=== PATIENT | male | born 1955 | race Caucasian/White ===

== ENCOUNTER 2022-03-10 05:38 | Outpatient (CLI) | payer BC ==
[~2022-03-10] VITALS: Ht 170.2 cm; Wt 81.6 kg
== END 2022-03-10 11:00 | disposition home or self-care (01) ==
LOC: PREOP 05:38
PROVIDERS: ATTEND Internal Medicine
DX: Z01.818 Encounter for other preprocedural examination (principal)

== ENCOUNTER 2022-03-18 08:27 | Day surgery (SDC) | payer BC ==
--- NOTE | 2022-03-10 08:10 | HISTORY AND PHYSICAL ---
DATE OF SERVICE: COLONOSCOPY HISTORY AND PHYSICAL DATE OF ADMISSION: 03/18/2022 HISTORY OF PRESENT ILLNESS: The patient is a 66-year-old white male referred by Dr. Anderson for screening colonoscopy. He reports one other colonoscopy 15 years ago, but as he recalls revealed no abnormalities. No evidence for neoplasia. He does have one second-degree relative with colon cancer and a great uncle with colon cancer on his father's side, they both had it later in life 70s or 80s. He is aware of no other history of GI tract malignancy. He denies melena or bright red blood per rectum, change in bowel habits or abdominal pain. PAST MEDICAL HISTORY: Significant for coronary artery disease and hyperlipidemia. He underwent bypass surgery in 1997 at the age of 42. He then had one stent placed in 2013. Since that time, he has had no further cardiac difficulty on statin and PCSK-9 inhibitor therapy. He reports total cholesterol of under 100 with an LDL in the 30s and the HDL in the 40s. PAST SURGICAL HISTORY: Other than bypass, significant for tonsillectomy and adenoidectomy as a child. 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 No past smoking history. Occasional glass of wine. No past history of heavy drinking. FAMILY HISTORY: Other than stated above, father at the age of 31 of an [place]. Mother is living at the age of 94 with no vascular disease or cancer. REVIEW OF SYSTEMS: CONSTITUTIONAL: Denies night sweats, chills, fever or change in weight. GASTROINTESTINAL: As noted in the HPI. PULMONARY: Denies cough, wheezing or shortness of breath. CARDIOVASCULAR: Denies chest discomfort, orthopnea, PND, pedal edema or syncope. PHYSICAL EXAMINATION: GENERAL: Reveals a white male, who appeared to be in no acute distress. VITAL SIGNS: Weight 180.6 pounds and blood pressure 124/72. HEENT: Unremarkable. CHEST: Clear to auscultation. CARDIAC: Reveals a regular rate and rhythm. Soft 1 to 2/6 systolic ejection murmur heard best at right intercostal space without evidence for pulsus, parvus or tardus. No S3 or S4 noted. ABDOMEN: Soft, supple without mass, organomegaly or tenderness. RECTAL: Deferred at the time of colonoscopy. EXTREMITIES: Reveal no cyanosis, clubbing or edema. SKIN: Evaluation revealed no suspicious nevi, a few benign nondysplastic appearing on the back and trunk. ASSESSMENT AND PLAN: The patient is being set up for screening colonoscopy. Prep instructions with the Plenvu prep were given and questions were answered. Job ID: [id number] DocumentID: [id number] Dictated Date: 03/09/2022 15:06:35 Supervisor [employer] Date: 03/09/2022 15:25:47 Dictated By: GURJIT GARCIA MD
[~2022-03-18] VITALS: Ht 170.2 cm; Wt 81.6 kg
[2022-03-18] MEDS ORDERED: LACTATED RINGERS 1,000 ML IV STA (08:36)
--- NOTE | 2022-03-18 08:37 | Pre-Op Note & Conscious Sedat ---
Pre-Operative Progress Note H&P Reviewed The H&P was reviewed, patient examined and no changes noted. Date H&P Reviewed: Mar 18, 2022 Time H&P Reviewed: 08:37 Conscious Sedation Pre-Proced ASA Score 2 For ASA 3 and 4: Consider anesthesia and medical clearance. Also, for patients with a history of failed moderate sedation consider anesthesia. Airway Lungs Heart ASA score ASA 1: a normal healthy patient ASA 2: a patient with a mild systemic disease (mid diabetes, controlled hypertension, obesity ASA 3: a patient with a severe systemic disease that limits activity (angina, COPD, prior Myocardial infarction) ASA 4: a patient with an incapacitating disease that is a constant threat to life (CHF, renal failure) ASA 5: a moribund patient not expected to survive 24 hrs. (ruptured aneurysm) ASA 6: a declared brain- patient whose organs are being harvested. For emergent operations, add the letter E after the classification Mallampati Classification Grade 2 Sedation Plan Analgesia, Amnesia, Plan communicated to team members, Discussed options with patient/fam, Discussed risks with patient/fam The patient is an appropriate candidate to undergo the planned procedure, sedation, and anesthesia. The patient immediately re-assessed prior to indication. GURJIT GARCIA MD Mar 18, 2022 08:37
[2022-03-18 08:50] VITALS: BP 164/85
[2022-03-18] MEDS ORDERED: UBID200C36 PO (08:59)
[2022-03-18] MEDS ORDERED: LEVO88CA4 PO (08:59)
[2022-03-18] MEDS ORDERED: PRAS10TA10 PO (08:59)
[2022-03-18] MEDS ORDERED: ROSU10TA28 PO (08:59)
[2022-03-18] MEDS ORDERED: FISH1CAP15 PO (08:59)
[2022-03-18] MEDS ORDERED: CYAN250010 PO (08:59)
[2022-03-18] MEDS ORDERED: CHRO200T13 PO (08:59)
[2022-03-18] MEDS ORDERED: ASCO100024 PO (08:59)
[2022-03-18] MEDS ORDERED: ALIR150P3 SQ (08:59)
[2022-03-18] MEDS ORDERED: CALC-64 PO (08:59)
[2022-03-18] MEDS ORDERED: VITA-272 PO (08:59)
[2022-03-18] MEDS ORDERED: ASPI-999 PO (08:59)
[2022-03-18] MEDS ORDERED: MV-M1TAB20 PO (08:59)
[2022-03-18] MEDS ORDERED: FENO135C4 PO (08:59)
[2022-03-18] MEDS ORDERED: FLAX10004 PO (08:59)
[2022-03-18] MEDS ORDERED: MULT-1136 PO (08:59)
[2022-03-18] MEDS ORDERED: METO-333 PO (08:59)
[2022-03-18] MEDS ORDERED: PROPOFOL INJECTION 50 ML IV ONE (09:50)
[2022-03-18] MEDS ORDERED: GLYCOPYRROLATE 0.2 MG/ML (ROBINUL) 2 ML VIAL ONE (10:08)
--- NOTE | 2022-03-18 10:18 | Anesthesia-General Post-Op ---
MAC Patient Condition Mental Status/LOC: Same as Preop Cardiovascular: Satisfactory Nausea/Vomiting: Absent Respiratory: Satisfactory Pain: Controlled Complications: Absent Post Op Complications Complications None Follow Up Care/Instructions Patient Instructions None needed. Anesthesiology Discharge Order Discharge Order Patient is doing well, no complaints, stable vital signs, no apparent adverse anesthesia problems. No complications reported per nursing. JÚNIOR LIRA CRNA Mar 18, 2022 10:18
[2022-03-18 10:20] VITALS: BP 76/48
[2022-03-18 10:25] VITALS: BP 93/50
[2022-03-18 10:30] VITALS: BP 89/54
[2022-03-18 11:00] VITALS: BP 120/72
--- NOTE | 2022-03-18 21:08 | OPERATIVE REPORT ---
DATE OF SERVICE: COLONOSCOPY SUMMARY INDICATION FOR THE PROCEDURE: Screening colonoscopy. I am his primary care provider. DESCRIPTION OF PROCEDURE: The patient was placed in the left lateral decubitus position. Prior to undergoing colonoscopy, digital rectal evaluation was performed. Prostate was unremarkable on digital inspection. No abnormalities were noted on digital inspection of anal canal or distal rectal vault. Perianal reflexes intact. The colonoscope was then inserted into the rectum and under direct visualization advanced to cecum. The cecum was identified by identification of the ileocecal valve and cecal strap. Photographic documentation was obtained. Careful inspection was made as the colonoscope was withdrawn. Quality of prep was good. FINDINGS: No evidence for internal or external hemorrhoids. The rectum, sigmoid colon, descending colon, splenic flexure were unremarkable. A diminutive 3 mm sessile polyp was noted in the mid transverse colon. It was biopsied and ablated. The remainder of the transverse colon, hepatic flexure, ascending colon, and cecum were unremarkable. ASSESSMENT: One diminutive polyp was biopsied and ablated noted in the mid transverse colon with otherwise normal colonoscopy to the cecum. I would advocate consideration for repeat screening colonoscopy in 10 years. Job ID: [id number] DocumentID: [id number] Dictated Date: 03/18/2022 10:18:55 Esthetician Date: 03/18/2022 21:06:55 Dictated By: GURJIT GARCIA MD [facility]
== END 2022-03-18 11:02 | disposition home or self-care (01) ==
LOC: ENDO 08:27
PROVIDERS: ATTEND Internal Medicine
DX: Z12.11 Encounter for screening for malignant neoplasm of colon (principal)